=== PATIENT | female | born 1965 | race Caucasian/White ===

== ENCOUNTER 2016-06-01 07:52 | Emergency (ER) | payer OTHER ==
[2016-06-01 08:07] VITALS: BP 120/91; PULSE 77; RESP 14; TEMP 98.1; O2SAT 95
--- NOTE | 2016-06-01 09:00 | UCPHY ---
H & P Patient Type: New Chief Complaint Nursing Narrative: PT REPORTS CONGESTION, PRODUCTIVE COUGH, VALENCIA, FEVER AND SINUS PRESSURE SINCE THURSDAY. HPI/ROS: CHIEF COMPLAINT: Cough and congestion HISTORY OF PRESENT ILLNESS: This is a healthy 51-year-old female who has been ill for the past 6 days. The illness began with diarrhea and vomiting. These persisted for 4 days but are now completely resolved. She had a normal bowel movement today. She has been able to eat and drink without difficulty. However , the illness evolved into a respiratory infection with productive cough, nasal congestion, mild sore throat, and mild headache. She flew from [place] yesterday and has had left ear pain since then. She initially had fever but this has resolved. She has been using Chastity-Bowie Plus with good relief of her symptoms. She has had an influenza vaccination this year. REVIEW OF SYSTEMS: A ten point review of systems was performed and is negative with the exception of the items mentioned in the HPI. 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 No tobacco use. - Physical Exam Exam: General Appearance: Alert. Vital signs reviewed. Blood pressure 120/91. Pulse ox normal. Afebrile. Eyes: Pupils equal and round, no conjunctival injection, no discharge. Anicteric. ENT, Mouth: Mucous membranes are moist, mild oropharyngeal erythema without edema or exudates. Tympanic membranes normal bilaterally. External auditory canals clear. Mild lower bilateral maxillary sinus tenderness to palpation. Neck: No lymphadenopathy, supple. Respiratory: Lungs are clear to auscultation; no wheezes, rales, or rhonchi. Cardiovascular: Regular rate and rhythm; no murmur, rub, or gallop. Gastrointestinal: Abdomen is soft and nontender, no masses or organomegaly, bowel sounds normal. Skin: Warm and dry, no rashes on exposed skin, normal color. Back: No CVAT. Neurological: Alert and oriented. Moving all four extremities easily and equally. Psychiatric: Normal affect. Constitutional: Initial Vital Signs Temperature (C) 36.7 C 06/01/16 08:05 Heart Rate 77 06/01/16 08:05 Respiratory Rate 14 06/01/16 08:05 Blood Pressure 120/91 H 06/01/16 08:05 O2 Sat (%) 95 06/01/16 08:05 O2 Delivery Mode Room Air Allergies/Adverse Reactions: No Known Allergies Allergy (Verified 05/16/12 08:12) Home Medications: Medication Instructions Recorded Miscellaneous Medical Supply [NO 1 ea MISC AD 05/16/12 HOME MEDS] Oseltamivir Phosphate [Tamiflu 75 75 mg PO BID #10 cap 05/16/12 mg (RX)] Amoxicillin/Clavulanate Pot 875 mg PO BID #14 tab 06/01/16 [Augmentin 875 MG TAB (*)] Departure - Departure Clinical Impression: Sinusitis, Upper respiratory infection Condition: Good Instructions: Sinusitis (ED), Upper Respiratory Infection (ED) Additional Instructions: Adult Pain & Fever Control: We recommend Acetaminophen (Tylenol) and Ibuprofen (Motrin,Advil) for pain and fever control. When fever is high or pain severe, both drugs can be used at the same time, but at different intervals. Please note the time differences. Your dose is: Acetaminophen 650mg every 4 to 6 hours Ibuprofen 400mg every 8 hours with food OR Note: do not take Acetaminophen with Hydrocodone (Vicodin, Lortab) or Oycodone (Percocet). These medications also contain Acetaminophen. No more than 3000mg of Acetaminophen should be taken in 24 hours (for an adult). Take the Augment twice daily for seven days. This is for sinusitis. As we discussed, this could be a viral illness, but I am concerned about a bacterial infection following the presumably viral illness that you have had. If you are worse in any way--return of fever, trouble breathing, worsening pain , any new or concerning symptoms--please be re-evaluated. Referrals: Amina Albert MD [Medical Doctor] - As per Instructions Stand Alone Forms: Work Excuse Prescriptions: Amoxicillin/Clavulanate Pot [Augmentin 875 MG TAB (*)] 875 mg PO BID #14 tab - PQRS PQRS Measurement: Does not apply.
== END 2016-06-01 09:10 | disposition home or self-care (01) ==
LOC: CED 07:52
DX: J32.9 Chronic sinusitis, unspecified (principal); J06.9 Acute upper respiratory infection, unspecified
CPT/HCPCS: 99204-PO; G0463-PO

== ENCOUNTER → 2016-06-16 | Outpatient (CLI) | payer OTHER ==
--- NOTE | 2016-06-16 18:56 | DX ---
Chest, PA and Lateral Upright Views, at 6:32 p.m. Clinical History: 51-year-old female who indicates that it "hurts to breathe since last ." Comparison Study: Chest, dated December 10, 2008. Findings: The lungs are hyperexpanded, with an inspiratory depth to the T12-L1 levels. There is a min or pectus excavatum deformity. Overlying breast soft tissue results in some increased attenuation at the lung bases, with no parenchymal consolidation seen in the lateral projection. There is no pleural effusion, peripheral interstitial edema, or pneumothorax. The trachea is midline. The thoracic verte bral body heights are maintained. Impression: Lung hyperexpansion, with no focal alveolar consolidation.
== END ==
LOC: BMCIMAGING 18:36
PROVIDERS: ATTEND Family Medicine
DX: R07.1 Chest pain on breathing (principal)

== ENCOUNTER → 2018-03-18 | Outpatient (CLI) | payer OTHER | LOC: CIMAGING 07:22 | PROVIDERS: ATTEND Family Medicine | DX: Z12.31 Encounter for screening mammogram for malignant neoplasm of breast (principal); R92.8 Other abnormal and inconclusive findings on diagnostic imaging of breast ==

== ENCOUNTER → 2018-03-24 | Outpatient (CLI) | payer OTHER | LOC: CIMAGING 13:05 | PROVIDERS: ATTEND Family Medicine | DX: R92.8 Other abnormal and inconclusive findings on diagnostic imaging of breast (principal) | CPT/HCPCS: 76641-PO ==

== ENCOUNTER → 2018-11-04 | Outpatient (CLI) | payer OTHER | LOC: FIMAGING 09:02 ==